=== PATIENT | male | born 1970 | race Caucasian/White ===

== ENCOUNTER 2018-05-23 14:59 | Inpatient (IN) | payer OTHER ==
[~2018-05-23] VITALS: Ht 172.7 cm; Wt 64.2 kg
[2018-05-23] VITALS (13 sets, daily range): BP systolic 77–118; BP diastolic 29–64
--- NOTE | ~2018-05-23 | HC ---
[facility] [place] [address] CONSULTATION Name: INAJOSH ALBERTO Room #: 236-P ADM IN M.R.#: [id number] Admission: 05/23/18 Attend Phys: Kilo Mcgee MD Discharge: Date of : 68 Report #: [id number] THIS REPORT FOR: //name// CC: Todd Mcgee DATE OF SERVICE: 05/23/2018 REASON FOR CONSULTATION: Hyperkalemia and acute kidney injury related to diabetic ketoacidosis. HISTORY OF PRESENT ILLNESS: This is a 47-year-old male who has suffered from the past 20 years or longer with type 1 diabetes mellitus. He presented with a couple day history of feeling poorly, manifested by weakness, some nausea, vomiting, cough. His mother provides much of his history and states that to her knowledge not had fevers or chills. His sugar started going up and were over 300 at home and could not be controlled. He came into the Emergency Room with the findings that he was in full blown diabetic ketoacidosis. All the labs will be noted below. Along with this, he has had some hyperkalemia with a presenting potassium of 6.3. Creatinine level was 3.1, bicarbonate was 11 on presentation and dropped to 8. In the Emergency Room, he got 3 liters of normal saline. He is now seen in the intensive care unit. Blood pressure was low in the Emergency Room, running as low as the 80s over 30 range, but he is now into the 90s/40 range. He is still tachycardic in the 115-120 range. He has had low-grade fever to 99.5. Also, while in the Emergency Room, after he had been there for about 3 hours he had an episode of wide complex tachycardia. I have reviewed that EKG and looks like a V-tach. That resolved within 2 minutes and I have a repeat EKG, which does not show changes of hyperkalemia. His current monitor strips do not look quite hyperkalemia either with potassium of 6.4. PAST MEDICAL HISTORY: The patient has suffered for years with Asperger syndrome and he has a moderate level of function with that. He has developed type 1 diabetes by the age 19 and has had numerous hospitalizations here at [facility] with diabetic ketoacidosis. His mother states he has had one hospitalization about [address] [facility] but otherwise all his care has been here, so we have medical records on all of that. He has had previous episodes of acute kidney injury with his diabetic ketoacidosis. He has chronic calcific pancreatitis. He has remote history of brain abscess, prior deep venous thrombosis. Along with his Asperger's, he has some developmental disorder, a variant of autism, obsessive compulsive disorder. He has had a previous laparoscopic cholecystectomy. MEDICATIONS: On admission include gabapentin 100 mg b.i.d., pancreatic enzyme supplements, esomeprazole 40 mg daily, aspirin 325 mg daily, Meloxicam 7.5 mg daily, several different eye drops, duloxetine 60 mg daily and insulin. [address] [address] CONSULTATION Name: JOSH BUCKLEY Room #: 236-P [facility] IN M.R.#: [id number] Admission: 05/23/18 Attend Phys: Kilo Mcgee MD Discharge: Date of : 68 Report #: [id number] ALLERGIES: No known medical allergies. SOCIAL HISTORY: The patient still is under the care of a 70-year-old mother. He is able to function at a moderate level and has worked for years in a [employer] service. More recently, he has had problems with disks in his back and has had back pain, so he has been unable to work. He does remain active around the house. REVIEW OF SYSTEMS: Appetite has been down over the past day and a half. Again he had nausea, some vomiting, no diarrhea. He has had some nonproductive cough, no pain. Unaware of fevers, chills and sweats, although he had a low-grade fever when he came in. States he has not had difficulty voiding urine. Has had increase urine output, is very thirsty. PHYSICAL EXAMINATION: GENERAL: A 47-year-old male seen in the Intensive Care Unit. He does awaken and speaks some. It is easy to understand speech, although he speaks very quietly. VITAL SIGNS: Blood pressure 90/37, heart rate 120, oxygen saturation 99%, respiratory rate 16. HEENT: Shows pupils are equal and reactive. Sclerae are nonicteric. Oral mucosa is very dry. NECK: Veins are flat. Neck is supple, no adenopathy. CHEST: Clear bilaterally. HEART: Has a regular tachycardia. No gallop. ABDOMEN: Has few bowel sounds present. Abdomen is soft, nontender, nondistended bladder. No organomegaly or masses are palpable. EXTREMITIES: Show no peripheral edema. He has adequate skin turgor and he has 1+ peripheral pulses. I see no lesions or rashes. Moves all extremities and is able to answer questions fairly well. LABORATORY DATA: On first arrival, sodium 125, potassium 6.3, chloride 88, bicarbonate 11, BUN 78, creatinine 3.4, glucose 1087, calcium 9.0, AST 25, ALT 88, total protein 7.4, albumin 4.1, phosphorus 7.5, magnesium 2.6. Lactate 2.7. Troponin less than 0.06. White count 14.5, hemoglobin 13.7, hematocrit 43.8, platelets 272,000. Urinalysis, specific gravity 1.025, pH 5.5, glucose 3+, ketones 1+, otherwise negative dipstick. Chest x-ray is clear, shows no infiltrate, no cardiomegaly, no pulmonary edema. ASSESSMENT: 1. Diabetic ketoacidosis with classic findings of volume depletion, tachycardia, dramatically elevated glucose, ketoacidosis. He has been given some IV fluids. He is still dry on exam. He is hypotensive and tachycardic in spite of getting 3 liters, so we will give him another liter of bolus now and we [facility] [address] [place] [address] CONSULTATION Name: JOSH BUCKLEY Room #: 236-P ADM IN M.R.#: [id number] Admission: 05/23/18 Attend Phys: Kilo Mcgee MD Discharge: Date of : 68 Report #: [id number] may need to repeat that if his pressure does not come up more. We will then get him on nonprotocol fluid replacement. He has been started on an insulin drip and sugar starting to come down, although it is still dramatically elevated. Uncertain of the etiology of this. We will draw some blood cultures. 2. Hyperkalemia. It is all related to his dramatically elevated glucose and diabetic ketoacidosis. As his sugar comes down, his potassium will improve. To stabilize things, he has gotten some calcium as well as some sodium bicarbonate. We will hold on the Kayexalate because the main treatment here is additional insulin to get his sugar down and at that point, his potassium later improved. Over time, his ketoacidosis will also get better. 3. Acute kidney injury, again related to osmotic diuresis and volume depletion. We will give him another liter of saline and then determine if we need to back off, continue to be aggressive. He has had several episodes of this before because I am uncertain at this time and what his mother is not aware of this was baseline creatinine level is currently. He certainly had diabetes long enough that he could have some diabetic nephropathy. I would note though that he does not have significant proteinuria. We will see how he responds and see how much his creatinine goes down long-term. 4. Longstanding diabetes mellitus as noted above. 5. Asperger syndrome as noted above. PLAN: 1. We will give him another liter of IV normal saline now. We may need to repeat that if his blood pressure did not come up. 2. Continue insulin drip per protocol. 3. Recheck labs on a regular basis to make sure his potassium level is improving and other lab parameters are coming around. I am sure in another day or so, will be replacing potassium. 4. Check blood cultures. 5. Close monitoring of vitals and I's and O's. 6. We will follow along the care of this patient. By: 55 42 Praful Uribe MD /nt
--- NOTE | ~2018-05-23 | EKG ---
[address] [address] ELECTROCARDIOGRAM REPORT Name: JOSH BUCKLEY Room #: 236-P ADM IN M.R.#: [id number] Admission: 05/23/18 Attend Phys: Kilo Mcgee MD Discharge: Date of : 68 Report #: [id number] THIS REPORT FOR: //name// [facility] ED Test Date: 2018-05-23 Test Time: 18:37:01 Pat Name: JOSH BUCKLEY Department: Room: 236 Gender: M Certified Shorthand Reporter: kf : 1970 Requested By: Josh Desouza Order Number: [id number] MD: Ralph Adames Measurements Intervals [facility] Rate: 157 P: -83 GA: 117 QRS: 90 QRSD: 153 T: 262 QT: 348 QTc: 563 Interpretive Statements Ventricular tachycardia Compared to ECG 02/09/2016 21:34:11 ventricular tachycardia has replaced sinus rhythm Electronically Signed On 05-24-2018 9:45:19 DIRECTOR OF OUTPATIENT SERVICES by Ralph Adames [email or web address] <ELECTRONICALLY SIGNED> By: Ralph Adames MD, [facility] 05/24/18 0945 1837 36 Ralph Adames MD, FACC /EPI
--- NOTE | ~2018-05-23 | EKG ---
[address] [email or web address] [address] ELECTROCARDIOGRAM REPORT Name: JOSH BUCKLEY Room #: 236-P ADM IN M.R.#: [id number] Admission: 05/23/18 Attend Phys: Kilo Mcgee MD Discharge: Date of : 68 Report #: [id number] THIS REPORT FOR: //name// [facility] ED Test Date: 2018-05-23 Test Time: 18:39:14 Pat Name: JOSH BUCKLEY Department: Room: 236 Gender: M Valet Parking Attendant: yandel : 1970 Requested By: Candelaria Jacobsen Order Number: [id number] MD: Ralph Adames Measurements Intervals [place] Rate: 125 P: 177 CO: 178 QRS: 101 QRSD: 117 T: 13 QT: 330 QTc: 476 Interpretive Statements Sinus or ectopic atrial tachycardia RBBB and LPFB Anteroseptal ST segment elevation, consider atypical RBBB, injury vs Brugada Compared to ECG 02/09/2016 21:34:11 Wide complex tachycardia is no longer present Electronically Signed On 05-24-2018 9:47:37 NUCLEAR PHYSICS PROFESSOR by Ralph Adames [email or web address] <ELECTRONICALLY SIGNED> By: Ralph Adames MD, FACC 05/24/18 0947 1839 1839 Ralph Adames MD, [facility] /EPI
--- NOTE | ~2018-05-23 | D ---
[facility] [place] [address] DISCHARGE SUMMARY Name: JOSH BUCKLEY Room #: 451-P ADM IN M.R.#: [id number] Admission: 05/23/18 Attend Phys: Bashir Strauss MD, [facility] Discharge: Date of : 68 Report #: [id number] THIS REPORT FOR: //name// CC: BASHIR Strauss DATE OF SERVICE: 05/28/2018 This 47-year-old white male who was admitted by Dr. Mcgee for Dr. Strauss to the Emergency Room with recurrent diabetic ketoacidosis. The patient developed a migraine and then became lethargic, anorectic, developed nausea and vomiting. His past history includes insulin-dependent diabetes type 1, for which he uses an insulin pump and followed by his precipitation equipment tender, Dr. Ashley; Asperger's syndrome, leg cramps, chronic back pain, previous pancytopenia. HOSPITAL COURSE: Initial physical revealed a poorly responsive dry white male. LUNGS: Clear. CARDIAC: Negative. ABDOMEN: Soft and nontender. SKIN: Clammy and cool. There was no peripheral edema. His initial white count was 14,000, hemoglobin 13.7. Sodium low at 125, potassium high at 6.3, creatinine high at 3.4, CO2 low at 11. Blood sugar high at 1087, lactic acid is high at 2.7, phosphorus high at 7.5, magnesium high at 2.6. Albumin was low at 2.8. The patient received aggressive IV fluids, and he progressively improved. On discharge, sodium is 139, potassium is low at 2.8, CO2 of 27, BUN 17, creatinine 0.8, estimated GFR 103, blood sugar 141, calcium 8.1, albumin 2.8. Hemoglobin 12.6, white count 3000. The patient had mild cellulitis of his right arm, for which he received vancomycin intravenously with resolution. He received potassium supplements prior to discharge and potassium was repleted prior to discharge. On 05/28/2018, the patient was ambulatory independently, was eating well and stable vital signs. Blood sugars were well controlled, and he was stable for discharge home on his insulin pump as he programs himself for the past several years, Creon 24,000, four units before meals and at bedtime. Duloxetine 60 mg daily, Nexium 40 mg daily, gabapentin 100 mg b.i.d., multivitamin 1 daily, aspirin 81 mg daily, timolol 1 drop each eye daily, ammonium lactate cream as needed, Xalatan 0.05% one drop each eye at bedtime. Meloxicam was stopped as the patient did not remember why he was taking it at home. He is to see Dr Strauss. in 1 week for followup potassium level. FINAL DIAGNOSES: 1. Diabetic ketoacidosis with acute kidney injury, hyperphosphatemia, hypermagnesemia and hyperkalemia. 2. Diabetes mellitus type 1 with neuropathy[address] [address] DISCHARGE SUMMARY Name: JOSH BUCKLEY Room #: 451-P [facility] IN M.R.#: [id number] Admission: 05/23/18 Attend Phys: Bashir Strauss MD, FAAF Discharge: Date of : 68 Report #: [id number] 3. Cellulitis of right hand. 4. Asperger syndrome. 5. Hypokalemia. 6. Glaucoma. By: [id number] Bradley Doe DO /nt
[~2018-05-23 14:59] MED LIST: ASPIRIN325 PO; CALCIUM CARBO1000 MG PO; CARAFATE 1 GM TA1 G1 PO; CREON DR 24,001 EACH PO; CYMBALTA30 MG PO; CYMBALTA60 MG PO; GABAPENTIN100 MG PO; HUMALOG100 UNIT/1 SQ; IMITREX100 MG PO; INSULIN PUMP; LANTUS SC; LIDODERM 5%1 PATC1 TRANSDERM; LIPITOR40 MG PO; MAXALT MLT ODT 55 M1 SUBLING; MAXALT MLT ODT10 M1 SUBLING; METOCLOPRAMIDE10 MG PO; MOBIC7.5 MG PO; MULTI-VITAMIN1 EAC5 PO; MULTIVITAMINS1 EAC7; NEXIUM40 MG PO; NOVOLOG100 UNIT/1; POTASSIUM GLUCONATE PO; REGLAN 10 MG TA10 MG PO; TYLENOL325 MG PO; ZOFRAN ODT4 MG PO
[2018-05-23] MEDS ORDERED: TIMOLOL MALEATE5 ML OPHTHALMIC (15:16)
[2018-05-23] MEDS ORDERED: AMMONIUM LACTA226 GM TOP (15:17)
[2018-05-23] MEDS ORDERED: XALATAN2.5 ML OPHTHALMIC (15:17)
[2018-05-23 15:45] LABS: ABSOLUTE NEUTROPHILS 12.8 thou/uL (1.4-8.2); BASOPHILS 0.4 % (0.0-2.0); EOSINOPHILS 0.1 % (0.0-3.0); HEMATOCRIT 43.8 % (42.0-52.0); HEMOGLOBIN 13.7 gm/dL (14.0-18.0); LYMPHOCYTES 5.1 % (24.0-44.0); MCHC 31.3 g/dL (28.0-37.0); MCV 98.8 fL (80.0-100.0); MONOCYTES 6.2 % (1.0-8.0); PLATELET COUNT 272 thou/uL (150-400); POLYS 88.2 % (36.0-66.0); RBC 4.43 mil/uL (4.50-6.00); RDW 14.1 % (10.5-14.5); WBC 14.5 thou/uL (4.0-11.0)
[2018-05-23 15:58] LABS: BE(vivo) -18.9 mmol/L (-2 to +3); HCO3 9.5 mmol/L (22.0-26.0); PCO2 VENOUS 30.8 mmHg (41.0-51.0); PO2 VENOUS 0 mmHg (35.0-45.0)
[2018-05-23 16:02] LABS: ALBUMIN 4.1 g/dL (3.4-5.0); CREATININE 3.4 mg/dL (0.7-1.3); TOTAL BILIRUBIN 0.7 mg/dL (<0.1-1.0); TOTAL PROTEIN 7.4 g/dL (6.4-8.2)
[2018-05-23 16:07] LABS: POTASSIUM 6.3 mmol/L (3.5-5.1)
[2018-05-23 17:12] LABS: URINE BILIRUBIN NEGATIVE (Negative); URINE BLOOD NEGATIVE (Negative); URINE CLARITY CLEAR; URINE COLOR YELLOW; URINE GLUCOSE-RANDOM* 3+ (Negative); URINE KETONES 1+ (Negative); URINE LEUKOCYTES-REFLEX NEGATIVE (Negative); URINE NITRITE-REFLEX NEGATIVE (Negative); URINE PROTEIN (DIPSTICK) NEGATIVE (Negative); URINE SPECIFIC GRAVITY 1.025 (1.005-1.035); URINE UROBILINOGEN 0.2 E.U./dl (0.2-1.0)
[2018-05-23 17:16] LABS: CALCIUM 8.9 mg/dL (8.5-10.1)
[2018-05-23 17:27] LABS: POTASSIUM 6.2 mmol/L (3.5-5.1)
[2018-05-23 18:52] LABS: ALBUMIN 4.1 g/dL (3.4-5.0); CALCIUM 8.7 mg/dL (8.5-10.1); CREATININE 3.1 mg/dL (0.7-1.3); PHOSPHORUS 7.5 mg/dL (2.5-4.9)
[2018-05-23 19:14] LABS: POTASSIUM 6.3 mmol/L (3.5-5.1)
[2018-05-23 21:37] LABS: ALBUMIN 3.5 g/dL (3.4-5.0); CALCIUM 8.9 mg/dL (8.5-10.1); CREATININE 2.9 mg/dL (0.7-1.3); MAGNESIUM 2.6 mg/dL (1.8-2.4); PHOSPHORUS 6.1 mg/dL (2.5-4.9)
[2018-05-23 21:40] LABS: POTASSIUM 4.7 mmol/L (3.5-5.1)
[2018-05-24] VITALS (19 sets, daily range): BP systolic 86–143; BP diastolic 36–71
[2018-05-24 01:38] LABS: ALBUMIN 3.4 g/dL (3.4-5.0); CALCIUM 8.4 mg/dL (8.5-10.1); CREATININE 2.3 mg/dL (0.7-1.3); MAGNESIUM 2.2 mg/dL (1.8-2.4); PHOSPHORUS 3.1 mg/dL (2.5-4.9); POTASSIUM 4.3 mmol/L (3.5-5.1)
[2018-05-24 06:08] LABS: ALBUMIN 3.3 g/dL (3.4-5.0); CALCIUM 8.5 mg/dL (8.5-10.1); CREATININE 1.8 mg/dL (0.7-1.3); MAGNESIUM 2.2 mg/dL (1.8-2.4); PHOSPHORUS 2.5 mg/dL (2.5-4.9); POTASSIUM 4.2 mmol/L (3.5-5.1)
[2018-05-25] VITALS (16 sets, daily range): BP systolic 95–124; BP diastolic 38–74
[2018-05-25 05:19] LABS: BASOPHILS 0.3 % (0.0-2.0); HEMATOCRIT 37.4 % (42.0-52.0); HEMOGLOBIN 12.7 gm/dL (14.0-18.0); LYMPHOCYTES 6.6 % (24.0-44.0); MCHC 33.9 g/dL (28.0-37.0); MONOCYTES 6.1 % (1.0-8.0); PLATELET COUNT 206 thou/uL (150-400); RBC 4.08 mil/uL (4.50-6.00); RDW 13.6 % (10.5-14.5); WBC 11.5 thou/uL (4.0-11.0)
[2018-05-25 05:25] LABS: MCV 91.6 fL (80.0-100.0)
[2018-05-25 05:31] LABS: ALBUMIN 3.2 g/dL (3.4-5.0); CALCIUM 8.1 mg/dL (8.5-10.1); CREATININE 1.1 mg/dL (0.7-1.3); MAGNESIUM 1.6 mg/dL (1.8-2.4); PHOSPHORUS 2.5 mg/dL (2.5-4.9); POTASSIUM 3.3 mmol/L (3.5-5.1); TOTAL BILIRUBIN 0.6 mg/dL (<0.1-1.0)
[2018-05-25 12:18] LABS: MAGNESIUM 1.9 mg/dL (1.8-2.4); POTASSIUM 3.5 mmol/L (3.5-5.1)
[2018-05-26 05:02] VITALS: BP 120/67
[2018-05-26 05:51] LABS: HEMATOCRIT 39.2 % (42.0-52.0); HEMOGLOBIN 13.5 gm/dL (14.0-18.0); MCH 31.2 pg (26.0-34.0); MCHC 34.5 g/dL (28.0-37.0); MCV 90.5 fL (80.0-100.0); PLATELET COUNT 177 thou/uL (150-400); RBC 4.33 mil/uL (4.50-6.00); RDW 12.7 % (10.5-14.5); WBC 5.1 thou/uL (4.0-11.0)
[2018-05-26 06:06] LABS: ALBUMIN 3.2 g/dL (3.4-5.0); CALCIUM 8.4 mg/dL (8.5-10.1); CREATININE 0.9 mg/dL (0.7-1.3)
[2018-05-26 06:29] LABS: ABSOLUTE NEUTROPHILS 3.4 thou/uL (1.4-8.2); NUCLEATED RBCS 1 /100WBC; PLATELET ESTIMATE NORMAL
[2018-05-26 08:11] VITALS: BP 116/60
[2018-05-26 14:40] VITALS: BP 122/65
[2018-05-26 19:26] VITALS: BP 119/63
[2018-05-27 02:00] VITALS: BP 119/74
[2018-05-27 08:00] VITALS: BP 126/87
[2018-05-27 15:04] VITALS: BP 99/47
[2018-05-27 21:07] VITALS: BP 112/64
[2018-05-28 04:46] VITALS: BP 110/66
[2018-05-28 05:36] LABS: HEMATOCRIT 36.7 % (42.0-52.0); HEMOGLOBIN 12.6 gm/dL (14.0-18.0); MCH 30.9 pg (26.0-34.0); MCHC 34.3 g/dL (28.0-37.0); PLATELET COUNT 160 thou/uL (150-400); RBC 4.08 mil/uL (4.50-6.00); RDW 12.6 % (10.5-14.5); WBC 3.2 thou/uL (4.0-11.0)
[2018-05-28 06:13] LABS: ALBUMIN 2.8 g/dL (3.4-5.0); CALCIUM 8.1 mg/dL (8.5-10.1); CREATININE 0.8 mg/dL (0.7-1.3); TOTAL BILIRUBIN 0.4 mg/dL (<0.1-1.0); TOTAL PROTEIN 5.3 g/dL (6.4-8.2)
[2018-05-28 06:16] LABS: ABSOLUTE NEUTROPHILS 1.5 thou/uL (1.4-8.2); ATYPICAL LYMPHS 3 %
[2018-05-28 06:19] LABS: POTASSIUM 2.8 mmol/L (3.5-5.1)
[2018-05-28 07:32] VITALS: BP 111/56
[2018-05-28 15:00] VITALS: BP 111/56
== END 2018-05-28 19:18 | disposition home or self-care (01) | DRG 871 ==
LOC: ER 14:59 → 4W 17:53 → ICU 17:53 → EROBS 17:53 → ICU 19:49 → 4W 05-25 16:24
PROVIDERS: Emergency Medicine; Family Medicine; Hospitalist; Internal Medicine; Nurse Practitioner Family
DX: A41.9 Sepsis, unspecified organism (principal); E10.10 Type 1 diabetes mellitus with ketoacidosis without coma; E43 Unspecified severe protein-calorie malnutrition; G93.40 Encephalopathy, unspecified; N17.9 Acute kidney failure, unspecified; F84.5 Asperger's syndrome; L03.113 Cellulitis of right upper limb; E87.1 Hypo-osmolality and hyponatremia; G43.909 Migraine, unspecified, not intractable, without status migrainosus; F42.9 Obsessive-compulsive disorder, unspecified; E87.5 Hyperkalemia; E83.39 Other disorders of phosphorus metabolism; E10.65 Type 1 diabetes mellitus with hyperglycemia; E10.40 Type 1 diabetes mellitus with diabetic neuropathy, unspecified; H40.9 Unspecified glaucoma; E87.6 Hypokalemia; E86.9 Volume depletion, unspecified; I95.9 Hypotension, unspecified; Z86.61 Personal history of infections of the central nervous system; Z86.73 Personal history of transient ischemic attack (TIA), and cerebral infarction without residual deficits; Z86.718 Personal history of other venous thrombosis and embolism; Z86.711 Personal history of pulmonary embolism; Z90.49 Acquired absence of other specified parts of digestive tract; Z79.4 Long term (current) use of insulin; Z79.82 Long term (current) use of aspirin; Z79.899 Other long term (current) drug therapy; Z83.3 Family history of diabetes mellitus; Z23 Encounter for immunization
CPT/HCPCS: 10047; 10078

== ENCOUNTER 2018-07-06 13:09 | Inpatient (IN) | payer OTHER ==
[2018-07-06] VITALS (20 sets, daily range): BP systolic 79–117; BP diastolic 30–54
[~2018-07-06] VITALS: Ht 172.7 cm; Wt 63.8 kg
[~2018-07-06 13:09] MED LIST changes: +AMMONIUM LACTA226 GM TOP; +TIMOLOL MALEATE5 ML OPHTHALMIC; +XALATAN2.5 ML OPHTHALMIC
[2018-07-06 14:13] LABS: ABSOLUTE NEUTROPHILS 12.8 thou/uL (1.4-8.2); BASOPHILS 0.5 % (0.0-2.0); EOSINOPHILS 0.1 % (0.0-3.0); HEMATOCRIT 42.6 % (42.0-52.0); HEMOGLOBIN 14.2 gm/dL (14.0-18.0); LYMPHOCYTES 3.5 % (24.0-44.0); MCH 31.9 pg (26.0-34.0); MCHC 33.3 g/dL (28.0-37.0); MCV 95.9 fL (80.0-100.0); MONOCYTES 5.8 % (1.0-8.0); PLATELET COUNT 293 thou/uL (150-400); POLYS 90.1 % (36.0-66.0); RBC 4.44 mil/uL (4.50-6.00); RDW 13.4 % (10.5-14.5); WBC 14.2 thou/uL (4.0-11.0)
[2018-07-06 14:20] LABS: ANION GAP 30 mmol/L (7-16); BUN 58 mg/dL (7-18); CALCIUM 9.2 mg/dL (8.5-10.1); CHLORIDE 91 mmol/L (98-107); CO2 12 mmol/L (21-32); CREATININE 2.3 mg/dL (0.7-1.3); POTASSIUM 5.5 mmol/L (3.5-5.1); SODIUM 133 mmol/L (136-145)
[2018-07-06 14:23] LABS: URINE BILIRUBIN NEGATIVE (Negative); URINE BLOOD NEGATIVE (Negative); URINE CLARITY CLEAR; URINE COLOR YELLOW; URINE GLUCOSE-RANDOM* 3+ (Negative); URINE KETONES 3+ (Negative); URINE LEUKOCYTES-REFLEX NEGATIVE (Negative); URINE NITRITE-REFLEX NEGATIVE (Negative); URINE PROTEIN (DIPSTICK) NEGATIVE (Negative); URINE UROBILINOGEN 0.2 E.U./dl (0.2-1.0)
[2018-07-06 14:25] LABS: ALBUMIN 4.3 g/dL (3.4-5.0); LIPASE 25 U/L (73-393); MAGNESIUM 2.5 mg/dL (1.8-2.4); SGOT 22 U/L (15-37); SGPT 50 U/L (30-65); TOTAL BILIRUBIN 0.7 mg/dL (<0.1-1.0); TOTAL PROTEIN 7.6 g/dL (6.4-8.2); TROPONIN-I <0.06 ng/mL (<0.06)
[2018-07-06 14:27] LABS: GLUCOSE 790 mg/dL (74-106)
--- NOTE | 2018-07-06 15:11 | NUR ---
VASCULAR ACCESS CONSULTED FOR CVAD, ORDER,CONSENT,LABS,HISTORY REVIEWED. PT WAS PREPPED AND DRAPED FOR MAX BARRIER PRECAUTIONS. RIJ WAS WIDELY PATENT WITH USG. 1% LIDOCAINE GIVEN SQ. 25CM 6FR TL JACC CATH INSERTED TO 6CM EXTERNAL THEN STAT CXR OBTAINED, IN R ATRIUM, LINE WITHDREW ADDITIONAL AMT TO EXTERNAL 7CM. LINE SECURED AND RELEASED FOR IMMEDIATE USE PER PROTOCOL.
[2018-07-06 16:07] LABS: BE(vivo) -19.6 mmol/L (-2 to +3); HCO3 8.2 mmol/L (22.0-26.0); PCO2 VENOUS 25.8 mmHg (41.0-51.0); PO2 VENOUS 66.4 mmHg (35.0-45.0)
--- NOTE | 2018-07-06 16:17 | NUR ---
Patient arrived to room 241 via cart from ED. IVF bolus running wide open. Home insulin pump removed from patient. Will do DKA protocol as ordered.
[2018-07-06 16:32] LABS: CREATININE 2.1 mg/dL (0.7-1.3); POTASSIUM 4.6 mmol/L (3.5-5.1)
[2018-07-06 17:17] LABS: MAGNESIUM 2.4 mg/dL (1.8-2.4); PHOSPHORUS 5.8 mg/dL (2.5-4.9)
[2018-07-06 21:50] LABS: POTASSIUM 4.5 mmol/L (3.5-5.1)
[2018-07-06 22:56] LABS: MAGNESIUM 2.2 mg/dL (1.8-2.4)
[2018-07-07] VITALS (45 sets, daily range): BP systolic 76–133; BP diastolic 36–77
[2018-07-07 00:32] LABS: CALCIUM 7.9 mg/dL (8.5-10.1); CREATININE 1.7 mg/dL (0.7-1.3); MAGNESIUM 2.2 mg/dL (1.8-2.4); POTASSIUM 4.3 mmol/L (3.5-5.1)
[2018-07-07 04:22] LABS: CREATININE 1.4 mg/dL (0.7-1.3); POTASSIUM 3.9 mmol/L (3.5-5.1)
--- NOTE | 2018-07-07 05:37 | NUR ---
Progressing well towards outcome goals. Blood sugars trending down. IVFluidsper DKA protocol. Denies pain. SBP upper 80's to 110's stable. Uses call ligh appropriately for needs. Slept well.
[2018-07-07 10:06] LABS: CALCIUM 8.3 mg/dL (8.5-10.1); CREATININE 1.3 mg/dL (0.7-1.3)
--- NOTE | 2018-07-07 16:13 | NUR ---
PT IS HERE FOR DKA ON A INSULIN DRIP. IS SLEEPY ORIENTED X3. FAMILY AT BEDSIDE FOR SUPPORT. ON ROOM AIR. LUNGS ARE CLEAR. PT HAS NAUSEA AND VOMITING TODAY. PHENERGAN RECTAL SUPOSITIORY GIVEN. NPO AT THIS TIME. DUE TO VOMITING. USES URINAL TO VOID. SKIN INTACT. ABDOMEN IS SOFT. AND BOWEL SOUNDS HYPOACTIVE. SINUS RHYTHM ON THE FORM GRADER OPERATOR. WILL CONTINUE TO ASSESS AND MONITOR PER NURSING.
--- NOTE | 2018-07-07 21:58 | EKG ---
[address] [address] ELECTROCARDIOGRAM REPORT Name: INAJOSH ALBERTO Room #: 241-P ADM IN M.R.#: [id number] Admission: 07/06/18 Attend Phys: Todd Strauss MD, FAAF Discharge: Date of : 68 Report #: [id number] THIS REPORT FOR: //name// [facility] ED Test Date: 2018-07-06 Test Time: 14:12:16 Pat Name: JOSH BUCKLEY Department: Room: Gender: M Retrofit Installer: WG : 1970 Requested By: Harvey Tom Order Number: [id number] MD: Vivek Villaseñor Measurements Intervals [place] Rate: 124 P: 63 VA: 130 QRS: 104 QRSD: 107 T: 39 QT: 331 QTc: 476 Interpretive Statements Sinus tachycardia Inferolateral infarct, old Electronically Signed On 07-07-2018 21:58:41 DRIVER SALESMAN by Vivek Villaseñor [email or web address] <ELECTRONICALLY SIGNED> By: Vivek Villaseñor MD 07/07/18 2158 1412 1412 Vivek Villaseñor MD /SENA
[2018-07-08] VITALS (29 sets, daily range): BP systolic 110–142; BP diastolic 56–91
[2018-07-08 05:15] LABS: BE(vivo) 3.6 mmol/L (-2 to +3); HCO3 28.7 mmol/L (22.0-26.0); PCO2 VENOUS 45.1 mmHg (41.0-51.0); PO2 VENOUS 33.1 mmHg (35.0-45.0)
[2018-07-08 05:23] LABS: CALCIUM 8.1 mg/dL (8.5-10.1); CREATININE 0.9 mg/dL (0.7-1.3); POTASSIUM 3.5 mmol/L (3.5-5.1)
[2018-07-08 05:36] LABS: ABSOLUTE NEUTROPHILS 8.1 thou/uL (1.4-8.2); BASOPHILS 0.2 % (0.0-2.0); HEMATOCRIT 38.6 % (42.0-52.0); HEMOGLOBIN 13.1 gm/dL (14.0-18.0); LYMPHOCYTES 6.5 % (24.0-44.0); MCH 31.3 pg (26.0-34.0); MCHC 33.9 g/dL (28.0-37.0); MCV 92.4 fL (80.0-100.0); MONOCYTES 10.4 % (1.0-8.0); PLATELET COUNT 212 thou/uL (150-400); POLYS 82.9 % (36.0-66.0); RBC 4.17 mil/uL (4.50-6.00); RDW 13.7 % (10.5-14.5); WBC 9.8 thou/uL (4.0-11.0)
--- NOTE | 2018-07-08 06:00 | NUR ---
PT AWAKE AND ALERT. SINUS RHTYHM. BATHED. REMAINS ON INSULIN GTT AT 3 UNITS/HR. ACCUCHECK 109. VOIDED 1000 CC URINE THIS SHIFT. BOUTS OF NAUSEA AND VOMITING CLEAR LIQUID. MEDS GIVEN AQS ORDERED. A VERY DELIGHTFUL GENTLEMAN. WILL CONT TO MONITOR CLOSELY.
--- NOTE | 2018-07-08 12:45 | H ---
[facility] [place] [address] HISTORY AND PHYSICAL Name: JOSH BUCKLEY Room #: 241-P ADM IN M.R.#: [id number] Admission: 07/06/18 Attend Phys: Todd Strauss MD, FAAF Discharge: Date of : 68 Report #: [id number] THIS REPORT FOR: //name// CC: Todd Strauss DATE OF SERVICE: 07/06/2018 CHIEF COMPLAINT: Diabetic ketoacidosis. HISTORY OF PRESENT ILLNESS: The patient is a 47-year-old white male well known to me as I have been his primary care doctor over many years. He has insulin-dependent diabetes mellitus and Asperger syndrome. He suffers from migraine headaches occasionally. He developed a migraine headache early on 07/05/2018 with associated vomiting. This progressed into a dehydration state and he developed diabetic ketoacidosis. His mother took him to the Emergency Department at [facility] where he was found to be in DKA. Chest x-ray was clear. He has an acute kidney injury associated with volume depletion as blood sugar was 790. He had positive ketones and his pH was 7.121 on venous blood gas. A right jugular central line was started. He was started on IV fluids and antiemetics. He received IV insulin in the Emergency Department and he is now admitted to the Intensive Care Unit. His headache has abated. He last vomited about 4 hours ago. PAST MEDICAL HISTORY: Meningitis 2005, CVA 2005 without residual changes, brain abscess in 2006, encephalitis 2006, Asperger syndrome, left foot cellulitis, OCD, migraines, calcifications of pancreas, type 2 diabetes, insulin pump use in 2010, gastroparesis, cholecystectomy in 2010, history of DVT and PE. Sees Dr. Ashley for Endocrinology. MEDICATIONS: Gabapentin 100 mg 1 p.o. b.i.d., Debbie MELO 24,000 unit capsules 4 capsules p.o. with meals and bedtime, Nexium 40 mg 1 p.o. daily, multivitamin 1 p.o. daily, aspirin 81 mg p.o. daily, insulin pump, timolol maleate ophthalmic solution, ammonium lactate 57 grams topically b.i.d., latanoprost 0.005% (Xalatan) 1 drop right eye at bedtime, duloxetine 60 mg 1 p.o. daily. ALLERGIES: No known drug allergies. SOCIAL HISTORY: Single, lives with his mother. Nonsmoker, nondrinker. FAMILY HISTORY: Unremarkable for premature coronary artery disease. REVIEW OF SYSTEMS: GENERAL: He has had a headache, nausea, vomiting, and dehydration. EYES: No visual changes. ENT: No problems with hearing, swallow, taste or smell. CARDIOVASCULAR: No chest pain or palpitations. He does have a sinus [facility] [address] [place] [address] HISTORY AND PHYSICAL Name: JOSH BUCKLEY Room #: 241-P [facility] IN M.R.#: [id number] Admission: 07/06/18 Attend Phys: Todd Strauss MD, FAAF Discharge: Date of : 68 Report #: [id number] tachycardia. RESPIRATORY: No difficulty breathing. GASTROINTESTINAL: Protracted nausea and vomiting. GENITOURINARY: No problems urinating. He is dehydrated. MUSCULOSKELETAL: No muscle or joint pain. NEUROLOGIC: No paresis, paralysis or paresthesias. He has had a migraine headache. PSYCHIATRIC: No feelings of depression currently or abnormal thoughts. DERMATOLOGIC: No disturbing lesions or rash. He does have some acrocyanosis of the lower left leg. Remainder of system review is negative. OBJECTIVE: VITAL SIGNS: Temperature is 36.8, pulse 125, respirations 22, blood pressure is 117/49, pulse ox on room air is 97%. He weighs 146 pounds or 66.23 kilograms. GENERAL: Well-developed, somewhat lethargic, but engaging in conversation and answers questions appropriately. HEENT: Pupils equal, round, reactive to light and accommodation. Extraocular muscles intact. Oral mucosa is dry. NECK: Supple. EXTREMITIES: He has a functioning right jugular central line. COR: S1, S2 regular, tachycardia. CHEST: Clear. ABDOMEN: Soft, nontender. EXTREMITIES: No cyanosis, clubbing or edema. He has acrocyanosis in the medial aspect of the left ankle. LABORATORY DATA: EKG shows sinus tachycardia, rate 124 with a right bundle branch block, old inferolateral NM, unchanged from EKG of May 2018. LABORATORY EVALUATION: CBC: White count 14.2, hemoglobin 14.2, hematocrit 42.6, platelets 293,000. Differential, white count 90.1% segmented neutrophils, 3.5% lymphocytes, 5.8% monocytes, 0.1 eosinophils, 0.5 basophils, absolute neutrophils 12.8. Serum chemistry: Sodium 133, potassium 5.5, chloride 91, CO2 of 12, BUN 58, creatinine 2.3, anion gap is 30. Estimated glomerular filtration rate is 31, glucose 790, calcium 9.2, magnesium 2.5, total bilirubin 0.7, AST 22, ALT 50, alkaline phosphatase 111. Creatinine kinase 144. Troponin less than 0.06. BNP 1575, total protein 7.6, albumin 4.3, lipase 25. Urinalysis was unremarkable except for 3+ ketones and 3+ glucose. Chest x-ray is clear of acute process and a right jugular central venous catheter has its tip in the vicinity of upper right atrium. ASSESSMENT: Diabetic ketoacidosis, insulin-dependent diabetes mellitus, hyperglycemia, dehydration, migraine headache, nausea and vomiting, acute kidney injury. [facility] [address] [place] [address] HISTORY AND PHYSICAL Name: JOSH BUCKLEY Room #: 241-P ADM IN M.R.#: [id number] Admission: 07/06/18 Attend Phys: Todd Strauss MD, HEATHER Discharge: Date of : 68 Report #: [id number] PLAN: Admit to the ICU, IV fluid rehydration, insulin drip, serial labs, antiemetics. <ELECTRONICALLY SIGNED> By: Todd Strauss MD, MIMI, FACEP 07/08/18 1245 1639 1708 Todd Strauss MD, MIMI, FACEP /nt
--- NOTE | 2018-07-08 13:09 | NUR ---
Assess due to admit for DKA, recurrent on multiple occasions. Hx asperger syndrome. Wts stable. Nauseated and remains on clear liquid diet and insulin drip. Low nutrition risk.
--- NOTE | 2018-07-08 14:52 | NUR ---
Met with patient who admits with DKA. patient has Aspergers, he repors he lives at home with his mother in [place]. He manages own medications with assist of mother. He uses no adaptive equipt. He does not drive. 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 casemgt following may benefit from HH at mo.
--- NOTE | 2018-07-08 16:33 | NUR ---
DKA RESOLVED THIS AM. PT CONT TO C/O NAUSEA AND OCCASSIONAL EMESIS. DIET NOT ADVANCED AND KEPT ON CLEAR LIQUIDS. PT KEPT ON D51/2NS WITH 20 KCL AND INSULIN GTT PER DR HERNANDEZ. ACCUCHECK Q2H.
[2018-07-09] VITALS (20 sets, daily range): BP systolic 102–126; BP diastolic 53–87
--- NOTE | 2018-07-09 05:02 | NUR ---
ASSESSMENT DOCUMENTED.PT BEEN RESTING MOST OF THE NOC IN NO ACUTE DISTRESS.A/OX4,FOLLOWS COMMANDS APPROPRIATELY.REMAINS ON INSULIN DRIP TITRATES PER BLOOD GLUCOSE LEVELS.PT HAD NAUSEA AND VOMITING X1 THIS SHIFT THAT WAS CONTROLLED WITH ANTIIEMTIC,RESOLVED COMPLETELY,PT WAS ABLE TO TOLERATES APPLE JUICE AND CHICKEN BROTH.POSITIVE BSX4 QUADS.VOIDS ADEQUATELY VIA URINAL.PT DENIES ANY NEEDS AT THIS TIME.WILL CONT TO MONITOR PER POC.
--- NOTE | 2018-07-09 06:34 | NUR ---
LOW BLOOD GLUCOSE OF 60 NOTED,PT ON INSULIN DRIP.INSULIN DRIP INFUSION STOPPED,APPLE JUICE GIVEN,TOLERATED,RECHECK BLOOD GLUCOSE IN 15 MINUTES RESULTS 79 MG/DL.DR HERNANDEZ PAGED,AWAITING CALL BACK.PT DENIES ANY DISTRESS AT THIS TIME.NO NAUSEA CONCERNS AT THIS TIME.WILL CONT TO MONITOR PER POC.
[2018-07-09 07:00] LABS: HEMATOCRIT 40.4 % (42.0-52.0); HEMOGLOBIN 13.9 gm/dL (14.0-18.0); MCH 30.9 pg (26.0-34.0); MCHC 34.4 g/dL (28.0-37.0); MCV 89.8 fL (80.0-100.0); RBC 4.5 mil/uL (4.50-6.00); RDW 13.1 % (10.5-14.5); WBC 3.8 thou/uL (4.0-11.0)
[2018-07-09 07:17] LABS: CALCIUM 8.2 mg/dL (8.5-10.1); CREATININE 0.7 mg/dL (0.7-1.3); POTASSIUM 3.5 mmol/L (3.5-5.1)
--- NOTE | 2018-07-09 13:50 | NUR ---
Assumed care of Pt at 0700. Pt alert and oriented x3 in no acute distress. Pleasant, conversant. insulin gtt d/c'd per protocol - per physician to check blood sugar hourly x 6 and then change to ACHS. sugars ranging 170-215. tolerating full liquid breakfast and soft/fiber restricted diet for lunch. instructed to resume home meds. OK to transfer out of ICU per physician. anticipate transfer later today. Sinus rhythm. HR 100-110's. Vitals stable. good progress toward poc goals.
[2018-07-10] VITALS: BP 124/76
--- NOTE | 2018-07-10 00:49 | NUR ---
ASSUMED CARE OF PATIENT AROUND 1900. PATIENT DENIES ANY PAIN, N/V, GENERAL CONCERNS. PATIENT EATING UNTIL 2200, BLOOD SUGAR TAKEN AT 2300. BG OVER 400, ORDERS TO CALL PHYSICIAN AFTER ADMINISTERING INSULIN. DR HERNANDEZ ORDERED A REDRAW IN ONE HOUR AND TO CALL ONLY IF >400. PATIENT IN 300 AT 0000 REDRAW. EDUCATED PATIENT ON NUTRITION AND MEDICATION. PATIENT IS PROGRESSING TOWARD GOALS. WILL CONTINUE TO MONITOR.
[2018-07-10 04:00] VITALS: BP 134/80
[2018-07-10 09:27] VITALS: BP 122/72
[2018-07-10 12:00] VITALS: BP 124/75
[2018-07-10 16:01] VITALS: BP 115/85
--- NOTE | 2018-07-10 18:20 | NUR ---
PT ALERT AND ORIENTED TIMES FOUR VERY PLEASANT. VSS, 98%RA, SR ON TELE. PT DENIES PAIN SOA. BLOOD SUGAR 494 THIS MORING, EXTRA 10UNITS GIVEN PER DRSoheila REQUEST. BS NOW 230. PT TOLERATES MEDS AND MEALS. PT UP AB NATHANIEL WITH STADY GAIT. PT MOM AT BEDSIDE THIS AFTERNOON. PT PROGRESISNG TOWRADS POC GOALS.
[2018-07-10 19:48] VITALS: BP 119/69
[2018-07-11 05:26] VITALS: BP 133/83
--- NOTE | 2018-07-11 05:47 | NUR ---
Pt. rested quietly at intervals during the night when checked on during frequent rounds. He offers no complaints of pain. Up ad ki in his room. Did c/o some indigestion which was relieved after having his milk.
[2018-07-11 07:30] VITALS: BP 143/73
[2018-07-11 16:43] VITALS: BP 128/68
[2018-07-11 19:21] VITALS: BP 131/73
--- NOTE | 2018-07-12 02:26 | NUR ---
Pt. rested quietly at intervals during the shift when checked on during frequent rounds. He offers no c/o pain. Up ad ki in his room. Blood sugar elevated and was treated as ordered (see emar). No c/o nausea.
[2018-07-12 02:35] VITALS: BP 141/61
[2018-07-12 07:54] VITALS: BP 127/60
[2018-07-12 13:55] VITALS: BP 96/66
--- NOTE | 2018-07-12 18:32 | NUR ---
PATIENT HAD A GOOD DAY. VERY PLEASANT AND APPRECIATIVE. BLOOD SUGAR ELEVATED. INCREASED SSI TO HIGH DOSE. BLOOD SUGAR 135 WITH SUPPER. GAVE 1 LITER IV FLUIDS PER ORDER. SINUS TACH ON MONITOR. DENIED CHEST PAIN. HOPING TO GO HOME TODAY. WAITING ON DR. HERNANDEZ TO ROUND.
[2018-07-12 20:21] VITALS: BP 99/58
--- NOTE | 2018-07-13 03:14 | NUR ---
PT UP MOST OF THE NIGHT PT AMBULATED HALLWAYS FOR 10 MIN PT USED CALL LIGHT EFFECTIVELY.
[2018-07-13 03:45] VITALS: BP 133/79
[2018-07-13 08:05] VITALS: BP 92/51
[2018-07-13 14:36] VITALS: BP 92/51
--- NOTE | 2018-07-13 15:56 | NUR ---
Pt stable, no issues or complaints noted. Pt is independent and ambulates the halls often. Seen by Dr. Carlos A quezada instructions given to the pt. Mother could not excelsior picker the pt due to bad weather. Informed house sup, arrangements being made for taxi from here to home. Informed to pt and mother. IV line discontinued
== END 2018-07-13 17:25 | disposition home or self-care (01) | DRG 682 ==
LOC: ER 13:09 → ICU 15:28 → 4W 07-10 19:45
PROVIDERS: Emergency Medicine; Internal Medicine; ADMIT Family Medicine
DX: N17.9 Acute kidney failure, unspecified (principal); E11.10 Type 2 diabetes mellitus with ketoacidosis without coma; F84.5 Asperger's syndrome; E86.0 Dehydration; G43.909 Migraine, unspecified, not intractable, without status migrainosus; Z90.49 Acquired absence of other specified parts of digestive tract; Z86.718 Personal history of other venous thrombosis and embolism; Z86.711 Personal history of pulmonary embolism; Z86.73 Personal history of transient ischemic attack (TIA), and cerebral infarction without residual deficits; Z79.4 Long term (current) use of insulin; Z82.49 Family history of ischemic heart disease and other diseases of the circulatory system; Z79.899 Other long term (current) drug therapy
CPT/HCPCS: 10045; 10047; 10078